=== PATIENT | female | born 1935 | race Caucasian/White ===

== ENCOUNTER 2017-04-10 13:25 | Inpatient (IN) | payer MEDICARE, MEDICAID ==
[~2017-04-10] VITALS: Ht 172.7 cm; Wt 76.0 kg
[~2017-04-10 13:25] MED LIST: ASPI-1264 PO; CARV-50 PO; CHOL200035 PO; CLOP75TA35 PO; CYAN500T46 PO; LISI40TA4 PO; NIFE90TA2 PO; OXYB5TAB29 PO; ZOC40T PO
[2017-04-10 14:11] LABS: BASOPHILS # (AUTO) 0.1 X10'3 (0-0.2); BASOPHILS % (AUTO) 0.7 % (0-1); EOSINOPHILS % (AUTO) 0.3 % (0-6); HEMATOCRIT 46.8 % (35.0-45.0); HEMOGLOBIN 15.5 g/dl (12.0-16.0); LYMPHOCYTES % (AUTO) 15.3 % (21-51); MEAN CORPUSCULAR HEMOGLOBIN 29.2 PG (27.0-31.0); MEAN CORPUSCULAR VOLUME 88.6 FL (78-98); MEAN PLATELET VOLUME 8.6 FL (7.4-10.4); MONOCYTES # (AUTO) 0.8 X10'3 (0-0.9); MONOCYTES % (AUTO) 6.3 % (2-12); NEUTROPHILS # (AUTO) 10.3 X10'3 (1.8-7.7); NEUTROPHILS % (AUTO) 77.4 % (42-75); PLATELET COUNT 260 X10'3 (140-440); RED BLOOD COUNT 5.29 X10'6 (4.20-5.60); RED CELL DISTRIBUTION WIDTH 15.3 % (11.5-14.5); WHITE BLOOD COUNT 13.3 X10'3 (4.5-11.0)
[2017-04-10 14:21] LABS: INR 0.9 INR; PARTIAL THROMBOPLASTIN TIME 24 SECONDS (22-32); PROTHROMBIN TIME 9.7 SECONDS (9.0-12.0)
[2017-04-10 14:32] LABS: ALANINE AMINOTRANSFERASE 15 U/L (12-78); ALBUMIN 3.9 G/DL (3.4-5.0); ALKALINE PHOSPHATASE 136 IU/L (46-116); ANION GAP 8 (8-16); ASPARTATE AMINO TRANSFERASE 9 U/L (10-37); BILIRUBIN,TOTAL 0.5 MG/DL (0.1-1.0); BLOOD UREA NITROGEN 22 MG/DL (7-18); BUN/CREATININE RATIO 15.7 (6.6-38.0); CALCIUM 10.7 MG/DL (8.5-10.1); CHLORIDE 105 MMOL/L (99-107); GLUCOSE 88 MG/DL (70-104); POTASSIUM 3.9 MMOL/L (3.5-5.1); SODIUM 143 MMOL/L (135-145); TOTAL CARBON DIOXIDE 29.9 MMOL/L (24-32); TOTAL PROTEIN 7.7 G/DL (6.4-8.2); TROPONIN I 0.11 NG/ML (0.0-0.05); eGFR 36 ML/MIN
[2017-04-10] MEDS ORDERED: normal saline 1000ML IV soln IVB ONE (16:00)
[2017-04-10] MEDS ORDERED: aspirin 325mg tablet PO ONE (18:15)
[2017-04-10] MEDS ORDERED: temazepam 15mg capsule PO PRN (21:00)
[2017-04-10] MEDS ORDERED: diphenhydrAMINE 50 mg/ml inj IV PRN (23:05)
[2017-04-10] MEDS ORDERED: morphine 2 MG/ML inj. syringe IV PRN (23:05)
[2017-04-10] MEDS ORDERED: magnesium hydroxide 30ml (MOM) UD suspension PO PRN (23:05)
[2017-04-10] MEDS ORDERED: mag hydrox/Alum hydrox/simeth 30ml oral suspension PO PRN (23:05)
[2017-04-10] MEDS ORDERED: acetaminophen 325mg tablet PO PRN (23:05)
[2017-04-10] MEDS ORDERED: ondansetron/PF 4mg/2ml inj IV PRN (23:05)
[2017-04-10] MEDS ORDERED: acetaminophen 650mg rectal suppository RC PRN (23:05)
[2017-04-10] MEDS ORDERED: diphenhydrAMINE 25mg capsule PO PRN (23:05)
[2017-04-10] MEDS ORDERED: bisacodyl 10mg suppository rectal RC PRN (23:05)
[2017-04-10 23:33] LABS: LIPASE 98 U/L (73-393); MAGNESIUM 2.3 MG/DL (1.5-2.4); PHOSPHORUS 3.8 MG/DL (2.3-4.5)
[2017-04-11] VITALS (7 sets, daily range): BP systolic 129–169; BP diastolic 63–83
[2017-04-11] MEDS: normal saline 1000ml 1,000 ML IV SCH ×2 (00:38→09:01)
[2017-04-11] MEDS ORDERED: albuterol 2.5 MG/3 ML nebule NEB PRN (02:05)
[2017-04-11 03:52] LABS: CLARITY,URINE SLIGHTLY CLOUDY (Clear); COLOR,URINE YELLOW (Yellow); GLUCOSE, URINE NEGATIVE (Neg); KETONES,URINE NEGATIVE (Neg); LEUKOCYTE ESTERASE ,URINE NEGATIVE (Neg); NITRITES, URINE NEGATIVE (Neg); OCCULT BLOOD,URINE NEGATIVE (Neg); PH,URINE 5.5 (4.8-8.0); PROTEIN,URINE NEGATIVE (Neg); UROBILINOGEN,URINE 0.2 E.U/dL (0.2-1.0)
[2017-04-11 03:54] LABS: UA COLLECTION TYPE NON-SPECIFIED
[2017-04-11 04:07] LABS: BACTERIA,URINE FEW /HPF (Neg); RBC,URINE 0-2 /HPF (0-2); SQUAMOUS EPITHELIAL CELL,UR MANY /LPF (FEW); WBC,URINE 0-4 /HPF (0-4)
[2017-04-11 04:08] LABS: AMORPHOUS URATES 1+
[2017-04-11 05:46] LABS: BASOPHILS # (AUTO) 0.1 X10'3 (0-0.2); BASOPHILS % (AUTO) 0.8 % (0-1); EOSINOPHILS # (AUTO) 0.3 X10'3 (0-0.9); HEMOGLOBIN 13.6 g/dl (12.0-16.0); LYMPHOCYTES # (AUTO) 2.2 X10'3 (1.1-4.8); LYMPHOCYTES % (AUTO) 23.7 % (21-51); MEAN CORPUSCULAR HGB CONC 34.1 % (33.0-36.5); MEAN CORPUSCULAR VOLUME 87.8 FL (78-98); MEAN PLATELET VOLUME 8.8 FL (7.4-10.4); MONOCYTES # (AUTO) 0.7 X10'3 (0-0.9); MONOCYTES % (AUTO) 7.2 % (2-12); NEUTROPHILS # (AUTO) 6.1 X10'3 (1.8-7.7); NEUTROPHILS % (AUTO) 65.3 % (42-75); PLATELET COUNT 199 X10'3 (140-440); RED BLOOD COUNT 4.55 X10'6 (4.20-5.60); RED CELL DISTRIBUTION WIDTH 15.8 % (11.5-14.5); WHITE BLOOD COUNT 9.4 X10'3 (4.5-11.0)
[2017-04-11 06:27] LABS: ALANINE AMINOTRANSFERASE 13 U/L (12-78); ALKALINE PHOSPHATASE 104 IU/L (46-116); ANION GAP 7 (8-16); ASPARTATE AMINO TRANSFERASE 11 U/L (10-37); BILIRUBIN,TOTAL 0.4 MG/DL (0.1-1.0); BLOOD UREA NITROGEN 27 MG/DL (7-18); BUN/CREATININE RATIO 22.5 (6.6-38.0); CALCIUM 9.5 MG/DL (8.5-10.1); CHLORIDE 108 MMOL/L (99-107); GLUCOSE 85 MG/DL (70-104); POTASSIUM 3.8 MMOL/L (3.5-5.1); SODIUM 143 MMOL/L (135-145); TOTAL CARBON DIOXIDE 27.9 MMOL/L (24-32); TOTAL PROTEIN 5.9 G/DL (6.4-8.2); eGFR 43 ML/MIN
[2017-04-11 07:06] LABS: CHOL/HDL RATIO 3.1 (0.00-4.99); CHOLESTEROL 119 MG/DL (0-200); HDL CHOLESTEROL 39 MG/DL (35-60); LDL CHOLESTEROL 66 MG/DL (50-100); TRIGLYCERIDES 102 MG/DL (20-135)
[2017-04-11] MEDS ORDERED: carVEDilol 12.5mg tablet PO SCH (08:00)
[2017-04-11] MEDS ORDERED: aspirin 325mg tablet PO SCH (08:00)
[2017-04-11] MEDS: oxybutynin 5mg tablet PO SCH ×2 (09:38→20:17)
[2017-04-11] MEDS: docusate sod 100mg capsule PO SCH ×2 (09:38→20:00)
[2017-04-11] MEDS: heparin, porcine 5000 units/ml vial SQ SCH ×2 (09:38→20:00)
[2017-04-11] MEDS: vitamin D (cholecalciferol) 1,000 unit tablet PO SCH (09:38)
[2017-04-11] MEDS: pantoprazole 40mg Tablet.DR PO SCH (09:38)
[2017-04-11] MEDS: clopidogrel 75mg tablet PO SCH (09:38)
[2017-04-11] MEDS ORDERED: ipratropium/albuterol 3ml nebule NEB PRN (11:35)
[2017-04-11] MEDS ORDERED: guaiFENesin/DM 10ml UD oral syrup PO PRN (11:35)
[2017-04-11] MEDS: aspirin/dipyridamole 25mg/200mg SR. capsule PO SCH (20:20)
[2017-04-11] MEDS ORDERED: atorvastatin 20mg tablet PO SCH (21:00)
[2017-04-11] MEDS: acetaminophen 325mg tablet PO PRN (21:19)
[2017-04-12 04:45] VITALS: BP 196/82
[2017-04-12 05:30] VITALS: BP 195/94
[2017-04-12 06:30] VITALS: BP 196/82
[2017-04-12 07:08] LABS: BASOPHILS # (AUTO) 0.1 X10'3 (0-0.2); EOSINOPHILS # (AUTO) 0.3 X10'3 (0-0.9); HEMATOCRIT 40.3 % (35.0-45.0); HEMOGLOBIN 13.7 g/dl (12.0-16.0); LYMPHOCYTES # (AUTO) 1.4 X10'3 (1.1-4.8); LYMPHOCYTES % (AUTO) 20.1 % (21-51); MEAN CORPUSCULAR HEMOGLOBIN 29.6 PG (27.0-31.0); MEAN CORPUSCULAR HGB CONC 34.1 % (33.0-36.5); MEAN CORPUSCULAR VOLUME 86.8 FL (78-98); MEAN PLATELET VOLUME 8.9 FL (7.4-10.4); MONOCYTES # (AUTO) 0.5 X10'3 (0-0.9); MONOCYTES % (AUTO) 7.3 % (2-12); NEUTROPHILS # (AUTO) 4.8 X10'3 (1.8-7.7); NEUTROPHILS % (AUTO) 67.6 % (42-75); PLATELET COUNT 185 X10'3 (140-440); RED BLOOD COUNT 4.64 X10'6 (4.20-5.60); RED CELL DISTRIBUTION WIDTH 15.5 % (11.5-14.5); WHITE BLOOD COUNT 7.1 X10'3 (4.5-11.0)
[2017-04-12 07:30] VITALS: BP 210/108
[2017-04-12 07:50] LABS: ALANINE AMINOTRANSFERASE 13 U/L (12-78); ALBUMIN 2.9 G/DL (3.4-5.0); ALBUMIN/GLOBULIN RATIO 0.9 (1.1-1.5); ALKALINE PHOSPHATASE 105 IU/L (46-116); ANION GAP 8 (8-16); ASPARTATE AMINO TRANSFERASE 13 U/L (10-37); BILIRUBIN,TOTAL 0.6 MG/DL (0.1-1.0); BLOOD UREA NITROGEN 15 MG/DL (7-18); CALCIUM 9.4 MG/DL (8.5-10.1); CHLORIDE 109 MMOL/L (99-107); GLUCOSE 84 MG/DL (70-104); SODIUM 143 MMOL/L (135-145); TOTAL CARBON DIOXIDE 26.4 MMOL/L (24-32); TOTAL PROTEIN 6.1 G/DL (6.4-8.2); eGFR 53 ML/MIN
[2017-04-12] MEDS: oxybutynin 5mg tablet PO SCH (08:00)
[2017-04-12] MEDS: heparin, porcine 5000 units/ml vial SQ SCH (08:00)
[2017-04-12] MEDS: clopidogrel 75mg tablet PO SCH (08:00)
[2017-04-12] MEDS: vitamin D (cholecalciferol) 1,000 unit tablet PO SCH (08:01)
[2017-04-12] MEDS: docusate sod 100mg capsule PO SCH (08:01)
[2017-04-12] MEDS: pantoprazole 40mg Tablet.DR PO SCH (08:01)
[2017-04-12] MEDS: aspirin/dipyridamole 25mg/200mg SR. capsule PO SCH (08:03)
[2017-04-12] MEDS: acetaminophen 325mg tablet PO PRN (08:05)
[2017-04-12] MEDS ORDERED: lisinopril 20mg tablet PO SCH (10:00)
[2017-04-12] MEDS ORDERED: NIFEdipine XL 30mg tablet PO SCH (10:00)
[2017-04-12] MEDS ORDERED: carVEDilol 12.5mg tablet PO SCH (10:00)
[2017-04-12 11:19] VITALS: BP 163/81
[2017-04-12 11:52] VITALS: BP 175/74
[2017-04-12] MEDS ORDERED: ASPI1CPM6 PO (13:41)
== END 2017-04-12 16:40 | disposition home health service (06) | DRG 64 ==
LOC: ER 13:26 → ED HOLD 23:01 → ORTHO 4S 23:59
PROVIDERS: ADMIT Family Medicine; ATTEND Family Medicine
DX: I63.9 Cerebral infarction, unspecified (principal); I21.4 Non-ST elevation (NSTEMI) myocardial infarction; N17.0 Acute kidney failure with tubular necrosis; G93.40 Encephalopathy, unspecified; E78.5 Hyperlipidemia, unspecified; I10 Essential (primary) hypertension; I25.10 Atherosclerotic heart disease of native coronary artery without angina pectoris; J44.9 Chronic obstructive pulmonary disease, unspecified; R09.02 Hypoxemia; Z72.0 Tobacco use; Z95.0 Presence of cardiac pacemaker; Z95.1 Presence of aortocoronary bypass graft; Z99.81 Dependence on supplemental oxygen; Z88.8 Allergy status to other drugs, medicaments and biological substances; Z88.5 Allergy status to narcotic agent; Z79.82 Long term (current) use of aspirin; Z79.899 Other long term (current) drug therapy
CPT/HCPCS: 36415; 70450; 70544; 70551; 71045; 80053; 80061; 81001; 83690; 83735; 83880; 84100; 84443; 84484; 85025; 85610; 85730; 87070; 93005; 93306; 93880; 94640; 94760; 96360; 97162; 99285; A4315; A4353; J1644; J7030

== ENCOUNTER 2017-11-21 01:28 | Inpatient (IN) | payer MEDICARE, MEDICAID ==
[2017-11-21] VITALS (14 sets, daily range): BP systolic 93–155; BP diastolic 46–80
[~2017-11-21] VITALS: Ht 167.6 cm; Wt 73.6 kg
[~2017-11-21 01:28] MED LIST changes: -ASPI-1264 PO; +ASPI1CPM6 PO
[2017-11-21] MEDS ORDERED: heparin 10,000 units/1 ML INJ IV ONE (01:40)
[2017-11-21] MEDS ORDERED: heparin 10,000 units/1 ML INJ IV PRN (01:40)
[2017-11-21] MEDS ORDERED: aspirin 81mg tab.chew PO ONE (01:40)
[2017-11-21 01:55] LABS: BASOPHILS # (AUTO) 0.1 X10'3 (0-0.2); BASOPHILS % (AUTO) 0.5 % (0-1); EOSINOPHILS # (AUTO) 0.5 X10'3 (0-0.9); EOSINOPHILS % (AUTO) 4.5 % (0-6); HEMATOCRIT 48.7 % (35.0-45.0); LYMPHOCYTES # (AUTO) 2.5 X10'3 (1.1-4.8); LYMPHOCYTES % (AUTO) 22.8 % (21-51); MEAN CORPUSCULAR HEMOGLOBIN 29.4 PG (27.0-31.0); MEAN CORPUSCULAR HGB CONC 32.9 % (33.0-36.5); MEAN CORPUSCULAR VOLUME 89.3 FL (78-98); MEAN PLATELET VOLUME 8.5 FL (7.4-10.4); MONOCYTES # (AUTO) 0.6 X10'3 (0-0.9); MONOCYTES % (AUTO) 5.7 % (2-12); NEUTROPHILS # (AUTO) 7.2 X10'3 (1.8-7.7); NEUTROPHILS % (AUTO) 66.5 % (42-75); PLATELET COUNT 230 X10'3 (140-440); RED BLOOD COUNT 5.46 X10'6 (4.20-5.60); RED CELL DISTRIBUTION WIDTH 16.4 % (11.5-14.5); WHITE BLOOD COUNT 10.8 X10'3 (4.5-11.0)
[2017-11-21] MEDS ORDERED: normal saline 1000ML IV soln IVB ONE (01:55)
[2017-11-21 02:09] LABS: INR 0.9 INR; PARTIAL THROMBOPLASTIN TIME 24 SECONDS (22-32); PROTHROMBIN TIME 9.7 SECONDS (9.0-12.0)
[2017-11-21] MEDS ORDERED: iohexol 350 MG/1 ML 200ml bottle ONE (02:09)
[2017-11-21] MEDS ORDERED: lidocaine 1%/epinephrine 1:100,000 injection 50ml vial ONE (02:09)
[2017-11-21] MEDS ORDERED: heparin 1,000unit/ml 10ml vial 10 ML ONE (02:09)
[2017-11-21 02:13] LABS: ALANINE AMINOTRANSFERASE 20 U/L (12-78); ALBUMIN 4.1 G/DL (3.4-5.0); ALBUMIN/GLOBULIN RATIO 1.1 (1.1-1.5); ALKALINE PHOSPHATASE 138 IU/L (46-116); ANION GAP 8 (8-16); ASPARTATE AMINO TRANSFERASE 13 U/L (10-37); BILIRUBIN,TOTAL 0.5 MG/DL (0.1-1.0); BLOOD UREA NITROGEN 35 MG/DL (7-18); BUN/CREATININE RATIO 18.1 (6.6-38.0); CALCIUM 10.8 MG/DL (8.5-10.1); CHLORIDE 102 MMOL/L (99-107); CREATININE 1.93 MG/DL (0.40-0.90); GLUCOSE 126 MG/DL (70-104); POTASSIUM 4.3 MMOL/L (3.5-5.1); SODIUM 141 MMOL/L (135-145); eGFR 25 ML/MIN
[2017-11-21 02:19] LABS: MAGNESIUM 2.5 MG/DL (1.5-2.4)
[2017-11-21] MEDS ORDERED: midazolam 2 mg/2 ml injection ONE (02:25)
[2017-11-21] MEDS ORDERED: tirofiban 5mg in NS 100mL 100 ML IV ONE (02:42)
[2017-11-21] MEDS ORDERED: clopidogrel 300mg tablet ONE (03:06)
[2017-11-21] MEDS ORDERED: ondansetron/PF 4mg/2ml inj IV PRN (04:20)
[2017-11-21] MEDS ORDERED: nitroGLYCERIN 0.4mg SUBLingual tab SL PRN (04:20)
[2017-11-21] MEDS ORDERED: normal saline 1000ml 1,000 ML IV SCH (04:20)
[2017-11-21] MEDS ORDERED: OXAZEpam 15mg capsule PO PRN (04:20)
[2017-11-21] MEDS ORDERED: HYDROcodone/acetaminophen 10/325mg tab PO PRN (04:20)
[2017-11-21] MEDS ORDERED: HYDROcodone/acetaminophen 5mg/325mg tablet PO PRN (04:20)
[2017-11-21] MEDS ORDERED: proCHLORperazine 10 MG/2 ml inj IV PRN (04:25)
[2017-11-21 07:40] LABS: CHOL/HDL RATIO 3.9 (0.00-4.99); CHOLESTEROL 138 MG/DL (0-200); HDL CHOLESTEROL 35 MG/DL (35-60); LDL CHOLESTEROL 93 MG/DL (50-100); TRIGLYCERIDES 107 MG/DL (20-135)
[2017-11-21] MEDS ORDERED: heparin 10,000 units/1 ML INJ ONE (09:00)
[2017-11-21] MEDS ORDERED: normal saline 1000ML IV soln ONE (09:00)
[2017-11-21] MEDS ORDERED: enoxaparin 100mg/ml syringe ONE (09:00)
[2017-11-21] MEDS ORDERED: aspirin 81mg tab.chew ONE (09:00)
[2017-11-21] MEDS: carvedilol 6.25mg tablet PO SCH ×2 (09:01→20:24)
[2017-11-21] MEDS: aspirin 81mg tablet.DR PO SCH (09:01)
[2017-11-21] MEDS ORDERED: amiodarone/D5 360MG/200ML BAG 200 ML IV SCH (09:08)
[2017-11-21] MEDS ORDERED: amiodarone 150mg/dext, iso-os 100 ML IV ONE (09:10)
[2017-11-21] MEDS: atorvastatin 20mg tablet PO SCH (09:16)
[2017-11-21] MEDS ORDERED: tirofiban 5mg in NS 100mL 100 ML IV SCH (09:35)
[2017-11-21] MEDS: acetaminophen 325mg tablet PO PRN (20:28)
[2017-11-21] MEDS ORDERED: losartan 25mg tablet PO SCH (21:00)
[2017-11-22 03:00] VITALS: BP 162/61
[2017-11-22 06:00] VITALS: BP 182/80
[2017-11-22 06:07] LABS: BASOPHILS # (AUTO) 0.1 X10'3 (0-0.2); BASOPHILS % (AUTO) 0.7 % (0-1); EOSINOPHILS # (AUTO) 0.4 X10'3 (0-0.9); EOSINOPHILS % (AUTO) 5.6 % (0-6); HEMATOCRIT 43.3 % (35.0-45.0); HEMOGLOBIN 14.4 g/dl (12.0-16.0); LYMPHOCYTES # (AUTO) 1.5 X10'3 (1.1-4.8); LYMPHOCYTES % (AUTO) 19.8 % (21-51); MEAN CORPUSCULAR HEMOGLOBIN 29.3 PG (27.0-31.0); MEAN CORPUSCULAR HGB CONC 33.2 % (33.0-36.5); MEAN CORPUSCULAR VOLUME 88.1 FL (78-98); MEAN PLATELET VOLUME 8.8 FL (7.4-10.4); MONOCYTES # (AUTO) 0.5 X10'3 (0-0.9); MONOCYTES % (AUTO) 6.4 % (2-12); NEUTROPHILS # (AUTO) 5.2 X10'3 (1.8-7.7); NEUTROPHILS % (AUTO) 67.5 % (42-75); PLATELET COUNT 179 X10'3 (140-440); RED BLOOD COUNT 4.91 X10'6 (4.20-5.60); RED CELL DISTRIBUTION WIDTH 15.9 % (11.5-14.5); WHITE BLOOD COUNT 7.6 X10'3 (4.5-11.0)
[2017-11-22 06:31] LABS: ALBUMIN 3.2 G/DL (3.4-5.0); ANION GAP 7 (8-16); BLOOD UREA NITROGEN 14 MG/DL (7-18); BUN/CREATININE RATIO 15.4 (6.6-38.0); CALCIUM 9.6 MG/DL (8.5-10.1); CHLORIDE 107 MMOL/L (99-107); CREATININE 0.91 MG/DL (0.40-0.90); GLUCOSE 97 MG/DL (70-104); POTASSIUM 4.3 MMOL/L (3.5-5.1); SODIUM 138 MMOL/L (135-145); TOTAL CARBON DIOXIDE 23.7 MMOL/L (24-32); eGFR 59 ML/MIN
[2017-11-22] MEDS: atorvastatin 20mg tablet PO SCH (07:18)
[2017-11-22] MEDS: carvedilol 6.25mg tablet PO SCH ×2 (07:19→23:28)
[2017-11-22] MEDS: acetaminophen 325mg tablet PO PRN (07:19)
[2017-11-22] MEDS: clopidogrel 75mg tablet PO SCH (07:20)
[2017-11-22] MEDS: aspirin 81mg tablet.DR PO SCH (08:59)
[2017-11-22 11:00] VITALS: BP 170/72
[2017-11-22] MEDS ORDERED: ZOLP10TA5 PO (11:50)
[2017-11-22] MEDS ORDERED: BUPR-94 PO (11:50)
[2017-11-22] MEDS ORDERED: MEMA10TA21 PO (11:50)
[2017-11-22 15:00] VITALS: BP 129/69
[2017-11-22 19:00] VITALS: BP 175/70
[2017-11-22] MEDS ORDERED: zolpidem 5mg tablet PO PRN (19:45)
[2017-11-22] MEDS ORDERED: aspirin/dipyridamole 25mg/200mg SR. capsule PO SCH (20:00)
[2017-11-22 23:00] VITALS: BP 161/74
[2017-11-22] MEDS: buPROPion 75mg tablet PO SCH (23:27)
[2017-11-22] MEDS: losartan 50mg tablet PO SCH (23:28)
[2017-11-23] MEDS: acetaminophen 325mg tablet PO PRN (02:29)
[2017-11-23 02:31] VITALS: BP 132/74
[2017-11-23 06:00] VITALS: BP 173/72
[2017-11-23 06:09] LABS: BASOPHILS % (AUTO) 0.3 % (0-1); EOSINOPHILS # (AUTO) 0.1 X10'3 (0-0.9); EOSINOPHILS % (AUTO) 1.4 % (0-6); HEMATOCRIT 42.8 % (35.0-45.0); HEMOGLOBIN 14.5 g/dl (12.0-16.0); LYMPHOCYTES # (AUTO) 1.5 X10'3 (1.1-4.8); LYMPHOCYTES % (AUTO) 15.1 % (21-51); MEAN CORPUSCULAR HEMOGLOBIN 29.6 PG (27.0-31.0); MEAN CORPUSCULAR HGB CONC 33.9 % (33.0-36.5); MEAN CORPUSCULAR VOLUME 87.2 FL (78-98); MEAN PLATELET VOLUME 8.8 FL (7.4-10.4); MONOCYTES # (AUTO) 0.6 X10'3 (0-0.9); MONOCYTES % (AUTO) 6.1 % (2-12); NEUTROPHILS # (AUTO) 7.8 X10'3 (1.8-7.7); NEUTROPHILS % (AUTO) 77.1 % (42-75); PLATELET COUNT 177 X10'3 (140-440); RED BLOOD COUNT 4.91 X10'6 (4.20-5.60); RED CELL DISTRIBUTION WIDTH 15.6 % (11.5-14.5); WHITE BLOOD COUNT 10.2 X10'3 (4.5-11.0)
[2017-11-23 06:19] LABS: ALBUMIN 3.1 G/DL (3.4-5.0); ANION GAP 8 (8-16); BLOOD UREA NITROGEN 17 MG/DL (7-18); BUN/CREATININE RATIO 17.2 (6.6-38.0); CALCIUM 9.8 MG/DL (8.5-10.1); CHLORIDE 102 MMOL/L (99-107); CREATININE 0.99 MG/DL (0.40-0.90); GLUCOSE 102 MG/DL (70-104); POTASSIUM 4.1 MMOL/L (3.5-5.1); SODIUM 134 MMOL/L (135-145); TOTAL CARBON DIOXIDE 24.2 MMOL/L (24-32); eGFR 54 ML/MIN
[2017-11-23] MEDS: clopidogrel 75mg tablet PO SCH (07:48)
[2017-11-23] MEDS: atorvastatin 20mg tablet PO SCH (07:48)
[2017-11-23] MEDS: vitamin D (cholecalciferol) 1,000 unit tablet PO SCH (07:48)
[2017-11-23] MEDS: oxybutynin 5mg tablet PO SCH ×2 (07:53→20:19)
[2017-11-23] MEDS: memantine 5mg tablet PO SCH (07:54)
[2017-11-23] MEDS: cyanocobalamin 500mcg tablet PO SCH (07:54)
[2017-11-23] MEDS: buPROPion 75mg tablet PO SCH ×2 (07:55→20:19)
[2017-11-23] MEDS: aspirin 81mg tablet.DR PO SCH (07:55)
[2017-11-23] MEDS: carvedilol 6.25mg tablet PO SCH ×2 (08:00→20:19)
[2017-11-23] MEDS: isosorbide mononitrate 30mg tab.SR.24H PO SCH (09:54)
[2017-11-23 11:00] VITALS: BP 138/69
[2017-11-23 15:00] VITALS: BP 124/58
[2017-11-23 19:00] VITALS: BP 125/66
[2017-11-23] MEDS: losartan 50mg tablet PO SCH (20:19)
[2017-11-23 23:00] VITALS: BP 150/60
[2017-11-24 02:44] VITALS: BP 127/52
[2017-11-24 05:38] LABS: BASOPHILS % (AUTO) 0.5 % (0-1); EOSINOPHILS # (AUTO) 0.2 X10'3 (0-0.9); EOSINOPHILS % (AUTO) 2.7 % (0-6); HEMOGLOBIN 14.1 g/dl (12.0-16.0); LYMPHOCYTES # (AUTO) 1.5 X10'3 (1.1-4.8); LYMPHOCYTES % (AUTO) 16.7 % (21-51); MEAN CORPUSCULAR HEMOGLOBIN 29.9 PG (27.0-31.0); MEAN CORPUSCULAR HGB CONC 34.4 % (33.0-36.5); MEAN CORPUSCULAR VOLUME 86.7 FL (78-98); MEAN PLATELET VOLUME 8.9 FL (7.4-10.4); MONOCYTES # (AUTO) 0.6 X10'3 (0-0.9); MONOCYTES % (AUTO) 6.4 % (2-12); NEUTROPHILS # (AUTO) 6.5 X10'3 (1.8-7.7); NEUTROPHILS % (AUTO) 73.7 % (42-75); PLATELET COUNT 168 X10'3 (140-440); RED BLOOD COUNT 4.73 X10'6 (4.20-5.60); RED CELL DISTRIBUTION WIDTH 15.3 % (11.5-14.5); WHITE BLOOD COUNT 8.9 X10'3 (4.5-11.0)
[2017-11-24 06:00] VITALS: BP 144/57
[2017-11-24 06:11] LABS: ANION GAP 7 (8-16); BLOOD UREA NITROGEN 20 MG/DL (7-18); BUN/CREATININE RATIO 18.5 (6.6-38.0); CHLORIDE 103 MMOL/L (99-107); CREATININE 1.08 MG/DL (0.40-0.90); GLUCOSE 107 MG/DL (70-104); POTASSIUM 4.2 MMOL/L (3.5-5.1); SODIUM 134 MMOL/L (135-145); TOTAL CARBON DIOXIDE 23.7 MMOL/L (24-32); eGFR 49 ML/MIN
[2017-11-24] MEDS: carvedilol 6.25mg tablet PO SCH (08:00)
[2017-11-24 08:29] VITALS: BP 97/49
[2017-11-24] MEDS: memantine 5mg tablet PO SCH (08:38)
[2017-11-24] MEDS: atorvastatin 20mg tablet PO SCH (08:38)
[2017-11-24] MEDS: buPROPion 75mg tablet PO SCH (08:39)
[2017-11-24] MEDS: vitamin D (cholecalciferol) 1,000 unit tablet PO SCH (08:39)
[2017-11-24] MEDS: clopidogrel 75mg tablet PO SCH (08:39)
[2017-11-24] MEDS: oxybutynin 5mg tablet PO SCH (08:40)
[2017-11-24] MEDS: isosorbide mononitrate 30mg tab.SR.24H PO SCH (08:41)
[2017-11-24] MEDS: aspirin 81mg tablet.DR PO SCH (08:42)
[2017-11-24] MEDS: cyanocobalamin 500mcg tablet PO SCH (10:33)
[2017-11-24 11:00] VITALS: BP 90/44
[2017-11-24 12:02] VITALS: BP 107/51
[2017-11-24 15:00] VITALS: BP 105/47
== END 2017-11-24 15:55 | DRG 247 ==
LOC: ER 01:29 → PCU 3S 03:30
PROVIDERS: ADMIT Family Medicine; ATTEND Nurse Practitioner Family
PROC: 4A023N7 Measurement of Cardiac Sampling and Pressure, Left Heart, Percutaneous Approach (ICD-10-PCS; principal; 2017-11-21)
PROC: 027034Z Dilation of Coronary Artery, One Artery with Drug-eluting Intraluminal Device, Percutaneous Approach (ICD-10-PCS; 2017-11-21)
PROC: B2111ZZ Fluoroscopy of Multiple Coronary Arteries using Low Osmolar Contrast (ICD-10-PCS; 2017-11-21)
PROC: B2151ZZ Fluoroscopy of Left Heart using Low Osmolar Contrast (ICD-10-PCS; 2017-11-21)
PROC: B2131ZZ Fluoroscopy of Multiple Coronary Artery Bypass Grafts using Low Osmolar Contrast (ICD-10-PCS; 2017-11-21)
DX: I21.19 ST elevation (STEMI) myocardial infarction involving other coronary artery of inferior wall (principal); I47.2 Ventricular tachycardia; I50.22 Chronic systolic (congestive) heart failure; I13.0 Hypertensive heart and chronic kidney disease with heart failure and stage 1 through stage 4 chronic kidney disease, or unspecified chronic kidney disease; N17.9 Acute kidney failure, unspecified; Z96.653 Presence of artificial knee joint, bilateral; N18.9 Chronic kidney disease, unspecified; E78.5 Hyperlipidemia, unspecified; I25.10 Atherosclerotic heart disease of native coronary artery without angina pectoris; F17.210 Nicotine dependence, cigarettes, uncomplicated; J44.9 Chronic obstructive pulmonary disease, unspecified; M19.90 Unspecified osteoarthritis, unspecified site; R00.1 Bradycardia, unspecified; T46.2X5A Adverse effect of other antidysrhythmic drugs, initial encounter; Z90.710 Acquired absence of both cervix and uterus; Z95.1 Presence of aortocoronary bypass graft; Z95.5 Presence of coronary angioplasty implant and graft; Z88.5 Allergy status to narcotic agent; Z88.8 Allergy status to other drugs, medicaments and biological substances; Z79.899 Other long term (current) drug therapy; Z79.82 Long term (current) use of aspirin; Z71.6 Tobacco abuse counseling; Z86.73 Personal history of transient ischemic attack (TIA), and cerebral infarction without residual deficits; Y92.238 Other place in hospital as the place of occurrence of the external cause
CPT/HCPCS: 93306; 93459; 96361; 96374; 99291; C9606; 36415; 71045; 80048; 80053; 80061; 83735; 83880; 84484; 85025; 85610; 85730; 87070; 93005; 97116; 97161; 99152; 99153; A4620; A6257; C1725; C1760; C1769; C1874; J0282; J1644; J1650; J2250; J3246; J3490; J7030; Q9967

== ENCOUNTER 2018-02-02 16:03 | Inpatient (IN) | payer MEDICARE, MEDICAID ==
[~2018-02-02] VITALS: Ht 175.3 cm; Wt 75.0 kg
[~2018-02-02 16:03] MED LIST changes: +BUPR-94 PO; +MEMA10TA21 PO; +ZOLP10TA5 PO
[2018-02-02] MEDS ORDERED: morphine 4 MG/ML inj SYRINge IV ONE (16:30)
[2018-02-02] MEDS ORDERED: metoprolol tartrate 1mg/ml inj IV ONE (16:30)
[2018-02-02] MEDS ORDERED: aspirin 81mg tab.chew PO ONE (16:30)
[2018-02-02] MEDS: nitroGLYCERIN 0.4mg SUBLingual tab SL PRN ×2 (16:50→17:11)
[2018-02-02 17:01] LABS: BASOPHILS % (AUTO) 0.5 % (0-1); EOSINOPHILS # (AUTO) 0.4 X10'3 (0-0.9); EOSINOPHILS % (AUTO) 5.8 % (0-6); HEMATOCRIT 42.4 % (35.0-45.0); HEMOGLOBIN 13.8 g/dl (12.0-16.0); LYMPHOCYTES # (AUTO) 1.9 X10'3 (1.1-4.8); LYMPHOCYTES % (AUTO) 25.2 % (21-51); MEAN CORPUSCULAR HEMOGLOBIN 28.5 PG (27.0-31.0); MEAN CORPUSCULAR HGB CONC 32.5 % (33.0-36.5); MEAN CORPUSCULAR VOLUME 87.8 FL (78-98); MEAN PLATELET VOLUME 8.1 FL (7.4-10.4); MONOCYTES # (AUTO) 0.3 X10'3 (0-0.9); MONOCYTES % (AUTO) 4.2 % (2-12); NEUTROPHILS % (AUTO) 64.3 % (42-75); PLATELET COUNT 221 X10'3 (140-440); RED BLOOD COUNT 4.83 X10'6 (4.20-5.60); RED CELL DISTRIBUTION WIDTH 16.4 % (11.5-14.5); WHITE BLOOD COUNT 7.7 X10'3 (4.5-11.0)
[2018-02-02] MEDS ORDERED: ondansetron/PF 4mg/2ml inj IV ONE (17:20)
[2018-02-02] MEDS ORDERED: BUPR150T8 PO (17:29)
[2018-02-02] MEDS ORDERED: niCARDipine/sod cl 20mg/200ml 200 ML IV SCH (17:30)
[2018-02-02 17:32] LABS: ALANINE AMINOTRANSFERASE 15 U/L (12-78); ALBUMIN 3.5 G/DL (3.4-5.0); ALBUMIN/GLOBULIN RATIO 0.9 (1.1-1.5); ALKALINE PHOSPHATASE 138 IU/L (46-116); ANION GAP 9 (8-16); ASPARTATE AMINO TRANSFERASE 10 U/L (10-37); BILIRUBIN,TOTAL 0.7 MG/DL (0.1-1.0); BLOOD UREA NITROGEN 19 MG/DL (7-18); BUN/CREATININE RATIO 13.6 (6.6-38.0); CALCIUM 10.7 MG/DL (8.5-10.1); CHLORIDE 106 MMOL/L (99-107); GLUCOSE 115 MG/DL (70-104); SODIUM 141 MMOL/L (135-145); TOTAL CARBON DIOXIDE 26.5 MMOL/L (24-32); TOTAL PROTEIN 7.2 G/DL (6.4-8.2); eGFR 36 ML/MIN
[2018-02-02] MEDS ORDERED: SIMV40TA PO (17:32)
[2018-02-02] MEDS ORDERED: niCARDipine-NS 40mg/200ml IVPB 200 ML IV SCH ×2 (17:35→21:13)
[2018-02-02] MEDS ORDERED: LOSA50TA3 PO (17:36)
[2018-02-02] MEDS ORDERED: ISOS60TA4 PO (17:36)
[2018-02-02] MEDS ORDERED: MEMA10TA PO ×2 (17:36)
[2018-02-02] MEDS ORDERED: CYAN250014 (17:38)
[2018-02-02] MEDS ORDERED: potassium Cl 40MEQ/NS 500ml 500 ML IV PRN ×2 (18:20)
[2018-02-02] MEDS ORDERED: magnesium hydroxide 30ml (MOM) UD suspension PO PRN (18:20)
[2018-02-02] MEDS ORDERED: ondansetron/PF 4mg/2ml inj IV PRN (18:20)
[2018-02-02] MEDS ORDERED: magnesium 4gm in 100ml NS 100 ML IV PRN (18:20)
[2018-02-02] MEDS ORDERED: magnesium Cl slow-release 64mg tablet PO PRN (18:20)
[2018-02-02] MEDS ORDERED: metoclopramide 5 mg/ml inj IV PRN (18:20)
[2018-02-02] MEDS ORDERED: HYDROcodone/acetaminophen 10/325mg tab PO PRN (18:20)
[2018-02-02] MEDS ORDERED: HYDROcodone/acetaminophen 5mg/325mg tablet PO PRN (18:20)
[2018-02-02] MEDS ORDERED: acetaminophen 325mg tablet PO PRN ×2 (18:20)
[2018-02-02] MEDS ORDERED: mag hydrox/Alum hydrox/simeth 30ml oral suspension PO PRN (18:20)
[2018-02-02] MEDS ORDERED: magnesium 1gm/100ml D5W IVPB 100 ML IV PRN (18:20)
[2018-02-02] MEDS ORDERED: potassium Cl 20 mEq SR tablet PO PRN ×2 (18:20)
[2018-02-02 18:50] LABS: PARTIAL THROMBOPLASTIN TIME 25 SECONDS (22-32)
[2018-02-02] MEDS: normal saline 1000ml 1,000 ML IV SCH (18:57)
[2018-02-02] MEDS: oxybutynin 5mg tablet PO SCH (20:21)
[2018-02-02] MEDS: buPROPion SR 150mg tablet PO SCH (20:21)
[2018-02-02 21:00] VITALS: BP 124/48
[2018-02-02] MEDS ORDERED: temazepam 15mg capsule PO PRN (21:00)
[2018-02-03] VITALS (7 sets, daily range): BP systolic 107–145; BP diastolic 53–89
[2018-02-03 05:53] LABS: BASOPHILS % (AUTO) 0.3 % (0-1); EOSINOPHILS # (AUTO) 0.1 X10'3 (0-0.9); EOSINOPHILS % (AUTO) 1.3 % (0-6); HEMATOCRIT 42.2 % (35.0-45.0); HEMOGLOBIN 13.9 g/dl (12.0-16.0); LYMPHOCYTES % (AUTO) 12.4 % (21-51); MEAN CORPUSCULAR HEMOGLOBIN 28.9 PG (27.0-31.0); MEAN CORPUSCULAR HGB CONC 32.8 % (33.0-36.5); MEAN CORPUSCULAR VOLUME 88.1 FL (78-98); MEAN PLATELET VOLUME 8.3 FL (7.4-10.4); MONOCYTES # (AUTO) 0.3 X10'3 (0-0.9); NEUTROPHILS # (AUTO) 6.5 X10'3 (1.8-7.7); PLATELET COUNT 199 X10'3 (140-440); RED BLOOD COUNT 4.79 X10'6 (4.20-5.60); RED CELL DISTRIBUTION WIDTH 16.2 % (11.5-14.5); WHITE BLOOD COUNT 7.9 X10'3 (4.5-11.0)
[2018-02-03 05:57] LABS: ALANINE AMINOTRANSFERASE 7 U/L (12-78); ALBUMIN/GLOBULIN RATIO 0.8 (1.1-1.5); ALKALINE PHOSPHATASE 138 IU/L (46-116); ANION GAP 8 (8-16); ASPARTATE AMINO TRANSFERASE 16 U/L (10-37); BILIRUBIN,TOTAL 0.7 MG/DL (0.1-1.0); BLOOD UREA NITROGEN 16 MG/DL (7-18); BUN/CREATININE RATIO 15.8 (6.6-38.0); CALCIUM 9.9 MG/DL (8.5-10.1); CHLORIDE 107 MMOL/L (99-107); CREATININE 1.01 MG/DL (0.40-0.90); GLUCOSE 77 MG/DL (70-104); SODIUM 140 MMOL/L (135-145); TOTAL CARBON DIOXIDE 24.6 MMOL/L (24-32); TOTAL PROTEIN 6.8 G/DL (6.4-8.2); eGFR 53 ML/MIN
[2018-02-03 06:00] LABS: MAGNESIUM 2.1 MG/DL (1.5-2.4)
[2018-02-03 06:06] LABS: POTASSIUM 4.4 MMOL/L (3.5-5.1)
[2018-02-03] MEDS ORDERED: OXYBUTYNIN CHLORIDE 5 MG PO SCH (08:00)
[2018-02-03] MEDS ORDERED: MEMANTINE HCL 10 MG PO SCH (08:00)
[2018-02-03] MEDS ORDERED: non-formulary drug (Simvastatin (Zocor) 1 TAB) PO SCH (08:00)
[2018-02-03] MEDS: K and/or MAG REPLACEMENT MC SCH (08:00)
[2018-02-03] MEDS ORDERED: non-formulary drug (Isosorbide Mononitrate (Isosorbide Mononitrate Er) 1 TAB) PO SCH (08:00)
[2018-02-03] MEDS: oxybutynin 5mg tablet PO SCH ×2 (09:05→19:52)
[2018-02-03] MEDS: clopidogrel 75mg tablet PO SCH (09:05)
[2018-02-03] MEDS: buPROPion SR 150mg tablet PO SCH ×2 (09:06→19:51)
[2018-02-03] MEDS: losartan 50mg tablet PO SCH (09:06)
[2018-02-03] MEDS: isosorbide mononitrate 30mg tab.SR.24H PO SCH (09:06)
[2018-02-03] MEDS: atorvastatin 20mg tablet PO SCH (09:06)
[2018-02-03] MEDS: memantine 5mg tablet PO SCH (09:07)
[2018-02-03] MEDS: normal saline 1000ml 1,000 ML IV SCH ×2 (09:12→14:17)
[2018-02-03 11:00] LABS: D-DIMER 2.26 MG/L FEU (0-0.50)
[2018-02-03] MEDS ORDERED: normal saline 1000ml 1,000 ML IV ONE (12:30)
[2018-02-03 16:40] LABS: CLARITY,URINE CLOUDY (Clear); COLOR,URINE YELLOW (Yellow); GLUCOSE, URINE NEGATIVE (Neg); KETONES,URINE NEGATIVE (Neg); LEUKOCYTE ESTERASE ,URINE NEGATIVE (Neg); NITRITES, URINE NEGATIVE (Neg); OCCULT BLOOD,URINE NEGATIVE (Neg); PROTEIN,URINE NEGATIVE (Neg)
[2018-02-03 16:50] LABS: UA COLLECTION TYPE NON-SPECIFIED
[2018-02-03 16:52] LABS: WBC,URINE 0-4 /HPF (0-4)
[2018-02-03 16:53] LABS: BACTERIA,URINE 4+ /HPF (Neg); MUCUS STRANDS FEW /LPF (Neg); RBC,URINE NONE SEEN /HPF (0-2); SQUAMOUS EPITHELIAL CELL,UR MANY /LPF (FEW); TRIPLE PHOSPHATE CRYST 2+ /HPF (NEGATIVE)
[2018-02-04] MEDS: normal saline 1000ml 1,000 ML IV SCH ×2 (00:17→07:48)
[2018-02-04 02:00] VITALS: BP 147/59
[2018-02-04 05:20] LABS: BASOPHILS % (AUTO) 0.7 % (0-1); EOSINOPHILS # (AUTO) 0.3 X10'3 (0-0.9); EOSINOPHILS % (AUTO) 3.9 % (0-6); HEMATOCRIT 36.5 % (35.0-45.0); HEMOGLOBIN 11.8 g/dl (12.0-16.0); LYMPHOCYTES # (AUTO) 1.5 X10'3 (1.1-4.8); LYMPHOCYTES % (AUTO) 21.5 % (21-51); MEAN CORPUSCULAR HEMOGLOBIN 28.5 PG (27.0-31.0); MEAN CORPUSCULAR HGB CONC 32.4 % (33.0-36.5); MEAN CORPUSCULAR VOLUME 87.9 FL (78-98); MEAN PLATELET VOLUME 8.3 FL (7.4-10.4); MONOCYTES # (AUTO) 0.4 X10'3 (0-0.9); MONOCYTES % (AUTO) 5.3 % (2-12); NEUTROPHILS # (AUTO) 4.6 X10'3 (1.8-7.7); NEUTROPHILS % (AUTO) 68.6 % (42-75); PLATELET COUNT 183 X10'3 (140-440); RED BLOOD COUNT 4.15 X10'6 (4.20-5.60); RED CELL DISTRIBUTION WIDTH 16.3 % (11.5-14.5); WHITE BLOOD COUNT 6.8 X10'3 (4.5-11.0)
[2018-02-04 05:40] LABS: ALANINE AMINOTRANSFERASE 11 U/L (12-78); ALBUMIN 2.6 G/DL (3.4-5.0); ALBUMIN/GLOBULIN RATIO 0.8 (1.1-1.5); ALKALINE PHOSPHATASE 120 IU/L (46-116); ANION GAP 8 (8-16); ASPARTATE AMINO TRANSFERASE 13 U/L (10-37); BLOOD UREA NITROGEN 14 MG/DL (7-18); BUN/CREATININE RATIO 12.6 (6.6-38.0); CALCIUM 9.1 MG/DL (8.5-10.1); CHLORIDE 107 MMOL/L (99-107); CREATININE 1.11 MG/DL (0.40-0.90); GLUCOSE 84 MG/DL (70-104); MAGNESIUM 1.8 MG/DL (1.5-2.4); POTASSIUM 3.8 MMOL/L (3.5-5.1); SODIUM 139 MMOL/L (135-145); TOTAL CARBON DIOXIDE 23.7 MMOL/L (24-32); TOTAL PROTEIN 5.9 G/DL (6.4-8.2); eGFR 47 ML/MIN
[2018-02-04 07:00] VITALS: BP 155/99
[2018-02-04] MEDS: buPROPion SR 150mg tablet PO SCH (07:43)
[2018-02-04] MEDS: isosorbide mononitrate 30mg tab.SR.24H PO SCH (07:44)
[2018-02-04] MEDS: memantine 5mg tablet PO SCH (07:44)
[2018-02-04] MEDS: oxybutynin 5mg tablet PO SCH (07:45)
[2018-02-04] MEDS: atorvastatin 20mg tablet PO SCH (07:45)
[2018-02-04] MEDS: clopidogrel 75mg tablet PO SCH (07:45)
[2018-02-04] MEDS: losartan 50mg tablet PO SCH (07:45)
[2018-02-04] MEDS: K and/or MAG REPLACEMENT MC SCH (08:00)
[2018-02-04 11:00] VITALS: BP 124/65
[2018-02-04 15:00] VITALS: BP 138/72
[2018-02-04] MEDS ORDERED: ASPI81TA52 PO (16:03)
[2018-02-04] MEDS ORDERED: LOSA25TA96 PO (16:03)
[2018-02-04] MEDS ORDERED: METO-395 PO (16:03)
[2018-02-04] MEDS ORDERED: ATOR20TA66 PO (16:28)
== END 2018-02-04 17:45 | disposition home or self-care (01) | DRG 281 ==
LOC: ER 16:03 → ED HOLD 19:37 → PCU 3S 21:09
PROVIDERS: ADMIT Family Medicine; ATTEND Hospitalist
DX: I21.3 ST elevation (STEMI) myocardial infarction of unspecified site (principal); I13.0 Hypertensive heart and chronic kidney disease with heart failure and stage 1 through stage 4 chronic kidney disease, or unspecified chronic kidney disease; I50.42 Chronic combined systolic (congestive) and diastolic (congestive) heart failure; N17.9 Acute kidney failure, unspecified; E78.5 Hyperlipidemia, unspecified; F17.200 Nicotine dependence, unspecified, uncomplicated; I16.0 Hypertensive urgency; I95.1 Orthostatic hypotension; I25.10 Atherosclerotic heart disease of native coronary artery without angina pectoris; M19.90 Unspecified osteoarthritis, unspecified site; M25.511 Pain in right shoulder; J44.9 Chronic obstructive pulmonary disease, unspecified; N18.9 Chronic kidney disease, unspecified; Z66 Do not resuscitate; I25.2 Old myocardial infarction; Z90.710 Acquired absence of both cervix and uterus; Z95.5 Presence of coronary angioplasty implant and graft; Z88.5 Allergy status to narcotic agent; Z88.8 Allergy status to other drugs, medicaments and biological substances; Z79.899 Other long term (current) drug therapy; Z86.73 Personal history of transient ischemic attack (TIA), and cerebral infarction without residual deficits; Z71.6 Tobacco abuse counseling
CPT/HCPCS: 36415; 70450; 71045; 74176; 80053; 81001; 83735; 83880; 84484; 85025; 85379; 85610; 85730; 87070; 93005; 96374; 96375; 97116; 97162; 97530; 99291; G0378; J2270; J2405; J2765; J3490; J7030

== ENCOUNTER 2020-03-06 14:22 | Emergency (ER) | payer MEDICARE, MEDICAID ==
[~2020-03-06] VITALS: Ht 165.1 cm; Wt 67.9 kg
[~2020-03-06 14:22] MED LIST changes: +ASPI-611 PO; -ASPI1CPM6 PO; -BUPR-94 PO; +BUPR150T6 PO; -CARV-50 PO; -CHOL200035 PO; +CYAN-51 PO; -CYAN500T46 PO; +ISOS60TA4 PO; -LISI40TA4 PO; +LOSA50TA3 PO; +MECL-226 PO; +MEMA10TA PO; -MEMA10TA21 PO; +MULT-1085 PO; -NIFE90TA2 PO; +SIMV-45 PO; +TRAM50TA2 PO; -ZOC40T PO
--- NOTE | 2020-03-06 14:56 | NUR ---
pt is a smoker. smokes 3-4 cigarettes a day
[2020-03-06] MEDS ORDERED: normal saline 1000ML IV soln IVB ONE (15:05)
--- NOTE | 2020-03-06 15:07 | NUR ---
LALI BLAS [phone]
[2020-03-06 16:06] LABS: CLARITY,URINE CLOUDY (Clear); COLOR,URINE YELLOW (Yellow); GLUCOSE, URINE NEGATIVE (Neg); KETONES,URINE NEGATIVE (Neg); LEUKOCYTE ESTERASE ,URINE SMALL (Neg); NITRITES, URINE NEGATIVE (Neg); OCCULT BLOOD,URINE TRACE-INTACT (Neg); PH,URINE 5.5 (4.8-8.0); PROTEIN,URINE TRACE mg/dl (Neg); UROBILINOGEN,URINE 0.2 E.U/dL (0.2-1.0)
[2020-03-06 16:09] LABS: UA COLLECTION TYPE STRAIGHT CATH
[2020-03-06 16:24] LABS: WBC,URINE 50-100 /HPF (0-4)
[2020-03-06 16:25] LABS: BACTERIA,URINE 1+ /HPF (Neg); MUCUS STRANDS FEW /LPF (Neg); RBC,URINE 0-2 /HPF (0-2); SQUAMOUS EPITHELIAL CELL,UR MODERATE /LPF (FEW); TRANSITIONAL EPI CELLS,URINE FEW /HPF; WBC CLUMPS,URINE MANY /HPF (NEGATIVE)
[2020-03-06 16:26] LABS: BASOPHILS # (AUTO) 0.1 X10'3 (0-0.2); BASOPHILS % (AUTO) 1.8 % (0-1); EOSINOPHILS # (AUTO) 0.3 X10'3 (0-0.9); EOSINOPHILS % (AUTO) 4.1 % (0-6); HEMATOCRIT 30.7 % (35.0-45.0); LYMPHOCYTES # (AUTO) 1.2 X10'3 (1.1-4.8); LYMPHOCYTES % (AUTO) 14.9 % (21-51); MEAN CORPUSCULAR HEMOGLOBIN 26.5 PG (27.0-31.0); MEAN CORPUSCULAR HGB CONC 32.4 g/dL (33.0-36.5); MEAN CORPUSCULAR VOLUME 81.9 FL (78-98); MONOCYTES # (AUTO) 0.4 X10'3 (0-0.9); MONOCYTES % (AUTO) 5.5 % (2-12); NEUTROPHILS # (AUTO) 5.7 X10'3 (1.8-7.7); NEUTROPHILS % (AUTO) 73.7 % (42-75); PLATELET COUNT 255 X10'3 (140-440); RED BLOOD COUNT 3.75 X10'6 (4.20-5.60); WHITE BLOOD COUNT 7.7 X10'3 (4.5-11.0)
[2020-03-06 16:32] LABS: ALANINE AMINOTRANSFERASE 10 U/L (12-78); ALBUMIN 2.7 G/DL (3.4-5.0); ALBUMIN/GLOBULIN RATIO 0.8 (1.1-1.5); ALKALINE PHOSPHATASE 104 IU/L (46-116); ANION GAP 6 (8-16); ASPARTATE AMINO TRANSFERASE 8 U/L (10-37); BILIRUBIN,TOTAL 0.5 MG/DL (0.1-1.0); BLOOD UREA NITROGEN 19 MG/DL (7-18); BUN/CREATININE RATIO 14.2 (6.6-38.0); CALCIUM 9.8 MG/DL (8.5-10.1); CHLORIDE 106 MMOL/L (99-107); CREATININE 1.34 MG/DL (0.40-0.90); GLUCOSE 94 MG/DL (70-104); POTASSIUM 4.4 MMOL/L (3.5-5.1); SODIUM 139 MMOL/L (135-145); TOTAL CARBON DIOXIDE 26.8 MMOL/L (24-32); TOTAL PROTEIN 6.2 G/DL (6.4-8.2); eGFR 38 ML/MIN
[2020-03-06 16:36] LABS: TROPONIN I < 0.04 NG/ML (0.0-0.05)
[2020-03-06] MEDS ORDERED: SULF1TAB49 PO (16:37)
[2020-03-06 17:22] VITALS: BP 129/55
== END 2020-03-06 17:24 | disposition home or self-care (01) ==
LOC: ER 14:23
DX: N39.0 Urinary tract infection, site not specified (principal); R42 Dizziness and giddiness; R53.1 Weakness; R53.83 Other fatigue; I10 Essential (primary) hypertension; Z95.0 Presence of cardiac pacemaker; Z98.890 Other specified postprocedural states; Z88.5 Allergy status to narcotic agent; Z88.8 Allergy status to other drugs, medicaments and biological substances; Z79.82 Long term (current) use of aspirin; Z79.899 Other long term (current) drug therapy; Z79.2 Long term (current) use of antibiotics
CPT/HCPCS: 36415; 71045; 80053; 81001; 82948; 84484; 85025; 87088; 93005; 96360; 99285; J7030